=== PATIENT | male | born 1965 ===

== ENCOUNTER 2024-05-02 14:06 | Outpatient (CLI) | payer OTHER | END 2024-05-02 23:59 | disposition home or self-care (01) | LOC: CARD DIAG 14:06 | PROVIDERS: ATTEND Chiropractor | DX: I37.1 Nonrheumatic pulmonary valve insufficiency (principal); I34.81 Nonrheumatic mitral (valve) annulus calcification; I25.9 Chronic ischemic heart disease, unspecified | CPT/HCPCS: 93306 ==